=== PATIENT | male | born 1990 ===

== ENCOUNTER 2025-03-04 06:40 | Emergency (ER) | payer SELFPAY ==
--- NOTE | 2025-03-04 06:49 | ED.BACK ---
HPI - Back Pain/Injury General Time Seen by Provider: 06:49 Date Seen: 03/04/25 Chief Complaint: Back Injury/Pain Stated Complaint: chronic back pain Time Seen by Provider: 03/04/25 06:48 Source: patient and family () Mode of arrival: ambulatory History of Present Illness HPI Narrative: Karl is a 34-year-old male with a past medical history of chronic back pain who presents the emergency department with his from home for evaluation of back pain. Patient reports left lower back pain that has been ongoing for the past 2 weeks. Patient denies any specific trauma or injury but does state that he bent over to pick something up and pulled his back. Patient describes the pain as a severe sharp stabbing pain in his left low back with radiation down to his left leg along with some tingling and numbness. 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 Patient denies any fever, chills, chest pain, shortness of breath, dysuria, hematuria, no urinary or bowel retention, no urinary or bowel incontinence, no focal weakness, denies any history of IV drug use. No other complaints. Patient has been taking Tylenol and ibuprofen as needed for pain with no improvement of the symptoms, last dose was yesterday morning. Patient states that he was unable to get in his truck this morning due to the pain. Review of Systems Narrative: Past medical history, past surgical history, medications, allergies, family history, and social history were reviewed with the patient. No additional pertinent items. A medically appropriate review of systems was performed with pertinent positives and negatives noted in HPI, all other systems negative. [facility] Medical History (Updated 03/04/25 @ 07:33 by Kalli Trejo MD) No significant past medical history Surgical History (Updated 03/04/25 @ 06:52 by Tripp Manley RN) No significant past surgical history Social History Smoking Status: Never smoker Second hand tobacco smoke exposure: No How often do you have a drink containing alcohol: never AUDIT-C Alcohol total score: 0 Non-prescribed substance use: denies use Exam Narrative: Exam Narrative: General: Afebrile, no acute distress HEENT: Normocephalic, atraumatic, conjunctiva normal. MMM Neck: non-tender, supple Cardio: regular rate. regular rhythm Resp: Normal work of breathing, no respiratory distress, lungs clear bilaterally, no wheezing, rhonchi, rales Chest/Back: no visual signs of trauma, no midline tenderness, +left lower paraspinal TTP, +SI TTP, no CVA tenderness Abdomen: soft, non distension, no tenderness, no peritoneal signs Neuro: alert and fully oriented. CN II-XII intact. Normal strength and sensation in all extremities. +ROM limited 2/2 to pain, pain with hip flexion, ambulates with cane MSK: no deformities. Normal range of motion Integumentary/Skin: no rash visualized, normal color Psych: normal affect, normal behavior Const: Vital Signs, click to edit/add: Vital Signs - 24 hr 03/04/25 06:53 Temperature 98.2 F Pulse Rate [Right Pulse Oximeter] 75 Respiratory Rate 18 Blood Pressure [Ri ght Upper Arm] 108/83 Pulse Oximetry 99 Oxygen Delivery Me thod Room Air Course Vital Signs Vital signs: Initial Vital Signs Temperature 98.2 F 03/04/25 06:53 Temperature Source Temporal Artery Scan 03/04/25 06:53 Pulse Rate 75 03/04/25 06:53 Respiratory Rate 18 03/04/25 06:53 Blood Pressure 108/83 03/04/25 06:53 Blood Pressure Mean 91 03/04/25 06:53 Blood Pressure Position Supine 03/04/25 06:53 Pulse Oximetry 99 03/04/25 06:53 Oxygen Delivery Method Room Air 03/04/25 06:53 Vital Signs Temperature 98.2 F 03/04/25 06:53 Pulse Rate 75 03/04/25 06:53 Respiratory Rate 18 03/04/25 06:53 Blood Pressure 108/83 03/04/25 06:53 Pulse Oximetry 99 03/04/25 06:53 Oxygen Delivery Method Room Air 03/04/25 06:53 Temperature 98.2 F 03/04/25 06:53 Pulse Rate 75 03/04/25 06:53 Respiratory Rate 18 03/04/25 06:53 Blood Pressure 108/83 03/04/25 06:53 Pulse Oximetry 99 03/04/25 06:53 Oxygen Delivery Method Room Air 03/04/25 06:53 Medications Administered Medications: Generic Name Dose Route Start Last Admin Trade Name Freq PRN Reason Stop Dose Admin Acetaminophen 1,000 mg 03/04/25 07:19 03/04/25 07:24 Acetaminophen 500 Mg Tablet PO 03/04/25 07:20 1,000 mg ONCE ONE Administration Ibuprofen 600 mg 03/04/25 07:19 03/04/25 07:25 Ibuprofen 200 Mg Tablet PO 03/04/25 07:20 600 mg ONCE ONE Administration Lidocaine 1 patch 03/04/25 07:30 03/04/25 07:27 Lidocaine 5% Patch TRANSDERMA 1 patch Q24H IRMA Administration Protocol Oxycodone HCl 5 mg 03/04/25 07:17 03/04/25 07:26 Oxycodone 5 Mg Tablet PO 03/04/25 07:18 5 mg ONCE ONE Administration MDM - Back Pain/Injury MDM Narrative Medical decision making narrative: Karl is a 34-year-old male with a past medical history of chronic back pain who presents the emergency department with his from home for evaluation of back pain. Upon arrival patient is nontoxic appearing, afebrile, in distress secondary to pain. Patient hemodynamically stable vital signs within normal limits. Patient here with likely acute exacerbation of chronic back pain, lumbar radiculopathy. No recent trauma or injury, symptoms started when he bent over. Patient with no red flags, no focal neurological deficit, low suspicious for acute spinal cord emergency/cauda equina. I discussed at length with patient, considered imaging however given no trauma, will hold off on CT at this time. Discussed symptomatic/supportive care with close outpatient follow-up and encouraged physical therapy and possible MRI for further evaluation. Patient is also agreeable to the plan. Patient initially off the IV Toradol, IV Dilaudid however declined and does not want any IV medications. Patient treated with lidocaine patch, Tylenol, ibuprofen, oxycodone. Plan to discharge with short course of prednisone, oxycodone, close outpatient follow-up. Strict return precautions discussed. Patient understands agrees with the plan. Discharge Plan Discharge Clinical Impression: Low back pain Patient Disposition: Home, Self-Care Condition: Improved Instructions: Acute Low Back Pain (ED), Lumbar Radiculopathy (ED) Additional Instructions: Please follow-up with your primary care provider in the next 5-7 days for further evaluation and follow-up. Please call to schedule an appointment. If you continue to have symptoms we recommend imaging with MRI of the lumbar spine. Please take steroids daily as directed to help with inflammation. Please take Tylenol 1000 mg every 6 hours as needed for pain. Please take oxycodone 1 tablet every 4-6 hours as needed for severe pain. Please be cautious to not drive or drink alcohol while on this medication. Once your acute symptoms have improved we recommend physical therapy, back exercises. Please return to the emergency department severe pain, focal weakness of your lower extremity, loss of control of your bowel or bladder, or any worsening symptoms. It was a pleasure taking care of it today. We hope you feel better soon Stand Alone Forms: MyHealth Info Instructions
[2025-03-04 06:53] VITALS: BP 108/83; PULSE 75; RESP 18; TEMP 36.8; O2SAT 99; BMI 28.7
[2025-03-04] MEDS: ACETAMINOPHEN 500 MG TABLET 1000 MG PO (07:24)
[2025-03-04] MEDS: IBUPROFEN 200 MG TABLET 600 MG PO (07:25)
[2025-03-04] MEDS: LIDOCAINE 5% PATCH 1 PATCH TRANSDERMA (07:27)
== END 2025-03-04 08:05 | disposition home or self-care (01) ==
LOC: ED 07:37
PROVIDERS: Emergency Provider Emergency Medicine
DX: M54.50 Low back pain, unspecified (principal)
CPT/HCPCS: 99283; 99285; A9270